=== PATIENT | male | born 1995 | race Caucasian/White ===

== ENCOUNTER 2019-09-08 03:55 | Emergency (ER) | payer OTHER, BC ==
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
[2019-09-08] MEDS ORDERED: Cyclobenzaprine 10 MG Tab PO ONE (06:30)
== END 2019-09-08 06:53 | disposition home or self-care (01) ==
LOC: JP.ED 03:55
DX: S20.229A Contusion of unspecified back wall of thorax, initial encounter (principal); S30.811A Abrasion of abdominal wall, initial encounter; V58.5XXA Driver of pick-up truck or van injured in noncollision transport accident in traffic accident, initial encounter
CPT/HCPCS: 36415; 72072; 80053; 80307; 85025; 99284; A9270